=== PATIENT | female | born 1960 | race Caucasian/White ===

== ENCOUNTER 2022-12-19 08:53 | Outpatient (CLI) | payer MEDICARE ==
[~2022-12-19] VITALS: Ht 165.7 cm; Wt 72.1 kg
[2022-12-19 09:28] LABS: TOTAL HEMOGLOBIN 12.3 G/dl (12.0-16.0)
[2022-12-19] MEDS ORDERED: albuterol 2.5 MG/3 ML nebule NEB ONE (09:50)
[2022-12-19 10:05] VITALS: PULSE 78; RESP 18; O2SAT 96
== END 2022-12-19 23:59 | disposition home or self-care (01) ==
LOC: RT 08:53
PROVIDERS: ATTEND Internal Medicine
DX: R06.02 Shortness of breath (principal)
CPT/HCPCS: 85018; 94060; 94727; 94729; 94760